=== PATIENT | male | born 1960 | race African-American/Black ===

== ENCOUNTER 2017-05-12 11:55 | Emergency (ER) | payer MEDICAID ==
[~2017-05-12] VITALS: Ht 175.3 cm; Wt 75.0 kg
[~2017-05-12 11:55] MED LIST: bp med
[2017-05-12 12:07] VITALS: BP 165/94
== END 2017-05-12 18:56 | disposition left against medical advice (07) ==
LOC: ER 13:23
DX: Z53.21 Procedure and treatment not carried out due to patient leaving prior to being seen by health care provider (principal)